=== PATIENT | female | born 1995 | race Caucasian/White ===

== ENCOUNTER 2017-10-13 14:24 | Inpatient (IN) ==
[2017-10-13] MEDS ORDERED: Naloxone 0.4 MG/ML INJ IVP PRN (15:04)
[2017-10-13] MEDS ORDERED: Ondansetron 4 MG/2 ML VIAL IVP PRN (15:04)
[2017-10-13] MEDS ORDERED: Metoclopramide 10 MG/2 ML VIAL IVP PRN (15:04)
[2017-10-13] MEDS ORDERED: *HR* Nalbuphine 20 MG/ML AMPUL IVP PRN (15:04)
[2017-10-13] MEDS ORDERED: Famotidine 20 MG/2 ML VIAL IVP PRN (15:04)
[2017-10-13] MEDS ORDERED: Ringers Solution, Lactated 1,000 ML IVC SCH (15:15)
[2017-10-13 15:38] LABS: Basophils % 0.1 %; Eosinophils % 0.3 %; Hematocrit 39.8 % (35.3-44.9); Hemoglobin 13.4 g/dL (11.5-15.4); Immature Granulocytes % 0.2 % (0-4); Lymphocytes # 1.7 K/mcL (0.6-4.6); Lymphocytes % 16.9 %; Mean Corpuscular HGB Conc 33.7 g/dL (31.6-35.5); Mean Corpuscular Volume 83.1 fL (83.0-100.0); Mean Platelet Volume 10.5 fL (9.4-12.4); Monocytes # 0.6 K/mcL (0.0-1.3); Monocytes % 5.9 %; Neutrophils # 7.5 K/mcL (1.6-8.9); Platelet Count 212 K/mcL (140-400); Red Blood Count 4.79 M/mcL (3.82-4.97); Red Cell Distribution Width 12.6 % (11.5-14.5); Segmented Neutrophils % 76.6 %
--- NOTE | 2017-10-13 15:53 | Anesthesia Evaluation PreOp ---
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: Denies Any Significant HX Other Medical History: Other (BMI >50) Anesthesia History: No Prior Anesthetic Complications, Past Anesthesia Alcohol Use: none Drug use: none Medications and Allergies Formula Tablet 10/13/17 [History] 3 Allergy/AdvReac Type Severity Reaction Status Date / Time No Known Allergies Allergy Verified 10/13/17 15:13 Anesthesia Results - Labs 10/13/17 15:10 Anesthesia Exam - HEENT Pupil (Motor): Pupils equal Mallampati: IV (good pronath, good TMD >6 cm) Teeth: Normal Oral Opening: Greater than 3 - 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 >50 BMI) Modified Mel Scale for Level of Consciousness: Cooperative, oriented, and tranquil Anesthetic Plan: General, Regional Monitoring Plan: Standard Monitors
[2017-10-13] MEDS ORDERED: Epidural Premix (fent/bupiv) 110 ML EP ONE (16:12)
[2017-10-13 16:17] LABS: Amphetamine Screen,Urine Negative ng/mL (Cutoff=1000); Barbiturate Screen,Urine Negative ng/mL (Cutoff=200); Benzodiazepines Screen,Urine Negative ng/mL (Cutoff=200); Cannabinoid Screen,Urine Negative ng/mL (Cutoff = 50); Cocaine Screen,Urine Negative ng/mL (Cutoff= 300); Opiate Screen,Urine Negative ng/mL (Cutoff=300); Phencyclidine Screen,Urine Negative ng/mL (Cutoff=25)
[2017-10-13] MEDS ORDERED: miSOPROStol 25 MCG TABLET PO PRN (16:43)
--- NOTE | 2017-10-13 17:35 | OB/GYN History & Physical ---
Date of Encounter: 10/13/17 Time of Encounter: 17:31 Assessment and Plan (1) 40 weeks gestation of Current visit: Yes Status: Acute (2) SAHIL (amniotic fluid index) borderline low Current visit: Yes Status: Acute Admit to labor and delivery for induction of labor Induction of labor with Cytotec Nubain/epidural as desired Continuous monitoring GBS Negative Anticipate (3) Morbid obesity with BMI of 45.0-49.9, adult Current visit: Yes Status: Acute (4) Decreased movement Current visit: Yes Status: Acute Qualifiers: Fetus number: single or unspecified fetus Trimester: third trimester Qualified Code(s): O36.8130 - Decreased movements, third trimester, not applicable or unspecified History of Present Illness HPI: Ms. Cho is a 21 year old female 40+ weeks gestation presenting from office for induction of labor due to post-EDC, decreased SAHIL of 5.4, and fetus measuring 36 weeks per ultrasound, however ultrasound determination is very limited by maternal habitus. She reports decreased movement over the last couple days. Rare contraction, denies vaginal bleeding or leaking of fluid. course complicated by maternal obesity, paternal history of cardiac defects, echo shows normal anatomy. Labs: A+, rubella nonimmune, varicella immune, GBS negative, although serologies negative Past Med Surg Social Fam HX - Past Medical History Medical history: hypertension (pt states has not taken medication in a long time ) Psychiatric history: no psych history - Past Surgical History Surgical History: no surgical history - Social History Smoking Status: Never smoker Smokeless Tobacco Status: No Alcohol use: none Drug use: none - Family History Mother History Unknown: Yes Obstetrical History - Pregnancies : 1 Para: 0 Term: 0 : 0 Ab's: 0 Livin Medications and Allergies Formula Tablet 10/13/17 [History] 3 Allergy/AdvReac Type Severity Reaction Status Date / Time No Known Allergies Allergy Verified 10/13/17 15:13 Exam - Constitutional Constitutional: well developed, well nourished, no acute distress, morbidly obese - Neck Neck exam: full ROM - Lungs Respiratory exam: CTAB - Cardiovascular Cardiovascular exam: RRR - Abdomen Abdomen: Present: bowel sounds normal, gravid, non tender - Extremities Extremities exam: normal capillary refill, normal inspection Deep Tendon Reflex Grade: 2+ Normal - Cervix Dilation: 1 Station: -2 - Uterus Uterus exam: Present: normal size, normal contour Results Result Diagrams: 10/13/17 15:10 All other labs normal. - VTE Reasons for not Prescribing Prophylaxis: Treatment not Indicated - Low risk for VTE
--- NOTE | 2017-10-13 22:25 | OB Labor Progress Note ---
Date of Encounter: 10/13/17 Time of Encounter: 21:30 Labor Progress Note - Subjective Subjective: Pt states she is feeling stronger contractions - Cervix Cervix: 1/50/-3 - Heart Tones Heart Tones: 135/moderate/+accels/-decels - Shubert Shubert: adjusted - Interventions Interventions: Cervical foote placed without incident - Plan Plan: If contractions decrease second dose of cytotec Otherwise when foote out will AROM and start pitocin Anticipate
--- NOTE | 2017-10-14 03:18 | Anesthesia Procedures ---
Date of Encounter: 10/14/17 Time of Encounter: 02:58 Procedures: Anesthesia - Epidural/Spinal Patient ID/Chart reviewed: Yes Patient examined: Yes OB Eval: Gestational age: term OB Eval: : 1 OB Eval: Contractions: Non-stressed pattern Supplemental Oxygen: None/Room Air Site Prep: Aseptic Technique, Sterile prep and drape, 0.5% Chlorhexidine/Alcohol Patient position: upright Local Anesthetic: Lidocaine 1% Amount of Local Anesthetic used: 3 Touhy Needle Gauge: 18 Touhy Needle Depth (cm): 8 Catheter Depth at Skin (cm): 12 Test Dose (1.5% Lido + Epi): Volume given (mls): 3 Test Dose Result: Negative Loading Dose: Other: 12ml from solution Loading Dose Administered: Thru Catheter Infusion Med: 0.125% Bupivacaine w/ 2 mcg/ml Fentanyl Infusion Rate (mls/hr): [address]: Tegaderm, Tape Interspace Used: L3-L4 Loss of Resistance (URSZULA): Yes (saline) Blood: No CSF: No Paresthesia: No Procedure: vss though out procedure, FHR stable per RN's
--- NOTE | 2017-10-14 03:57 | OB Labor Progress Note ---
Date of Encounter: 10/14/17 Time of Encounter: 04:14 Labor Progress Note - Subjective Subjective: Pt coping well with contractions - Vital Signs Vital Signs: VSS - Cervix Cervix: 4/60/-3 - Heart Tones Heart Tones: 140/moderate/+ accels/ variables and lates. Pt repositioned, fluid bolus, and amnioinfusion ordered. Pitocin remains off at this time. - [place]: IUPC q 3 - Interventions Interventions: AROM for clear fluid. FSE and IUPC placed at 0200 - Plan Plan: Start amnioinfusion if variables continue Reposition as tracing allows GBS negative.
[2017-10-14] MEDS ORDERED: 0.9 % Sodium Chloride 1,000 ML ONE (03:59)
[2017-10-14] MEDS ORDERED: Lidocaine/EPI 1:200k 2% PF 20 ML VIAL ONE (05:09)
[2017-10-14] MEDS ORDERED: Ringers Solution, Lactated 1,000 ML ONE ×2 (05:17→05:55)
[2017-10-14] MEDS ORDERED: *HR* Oxytocin 10 UNIT/ML VIAL IM ONE ×2 (05:20→05:54)
[2017-10-14] MEDS ORDERED: *HR* Morphine Sulfate/PF 5 MG/10 ML AMPUL ONE (05:47)
[2017-10-14] MEDS ORDERED: Naloxone 0.4 MG/ML INJ IVP PRN (06:08)
[2017-10-14] MEDS ORDERED: *HR* HYDROmorphone (PF) 1 MG/ML SYRINGE IVP PRN (06:08)
[2017-10-14] MEDS ORDERED: *HR* OxyCODONE/APAP 5/325 TABLET PO PRN ×2 (06:08→07:22)
[2017-10-14] MEDS ORDERED: *HR* Morphine 2 MG/ML SYRINGE IVP PRN (06:08)
[2017-10-14] MEDS ORDERED: Ibuprofen 400 MG TABLET PO PRN (06:08)
[2017-10-14] MEDS ORDERED: Ondansetron 4 MG/2 ML VIAL IVP PRN ×2 (06:08→07:22)
[2017-10-14] MEDS ORDERED: Acetaminophen IV 1,000 MG/100 ML INFUS..BTL IVPB STA (06:13)
[2017-10-14] MEDS ORDERED: Ondansetron 4 MG/2 ML VIAL ONE (06:27)
--- NOTE | 2017-10-14 06:54 | OB/GYN Procedure Note ---
Section - Date of procedure: 10/14/17 Preop diagnosis: category 2 FHT tracing Post-op diagnosis: same Procedure: primary low transverse Surgeon: Koko Marquez Estimated blood loss (cc): 400 Anesthesiologist: Roseline Galvez Rocket Scientist: Roseline Galvez Anesthesia Type: Epidural section complications: none Disposition: L&D Recovery Room - (s) Infant A Infant Delivery Date: 10/14/17 Delivery Time: 06:09 Presentation: vertex Gender: Female Gram Weight: 2.755 kg at 1 minute: 7 at 5 minutes: 9 Shoulder Dystocia: not encountered Cord: nuchal cord - Narrative Narrative: The patient was brought to the operating suite in stable condition with epidural anesthesia on board and an indwelling catheter in place in the bladder. The patient was placed supine on the operating room table and rolled to her left side. The abdomen was prepped and draped in standard fashion for section. After testing with forceps to assure an adequate anesthetic level, the surgery was commenced. With the scalpel, a Pfannenstiel skin incision was made. Dissection was carried down sharply through the subcutaneous tissues and fascia in a transverse plane with the scalpel, electrocautery and curved [place] scissors. The fascia was sharply freed up superiorly and inferiorly from the underlying rectus muscles, which were bluntly and sharply divided. The peritoneum was entered bluntly. The peritoneal incision was then extended vertically. A retractor and bladder blade were placed. A bladder flap was created by incising transversely through the peritoneum and vesicouterine fold and then bluntly dissecting the bladder distally. With the scalpel, a low transverse hysterotomy was commenced. The serosa and myometrium were scored with the scalpel. The uterine cavity was actually entered bluntly. The uterine incision was then extended laterally with the bandmill operator's fingers. An intrauterine hand was placed and the head of the was brought up out of the pelvis into the uterine incision. With fundal pressure, he was delivered without difficulty. The nasopharynx and oropharynx were suctioned. The cord was doubly clamped and transected. The was then handed off to the nursery personnel. Intravenous Pitocin was administered. The placenta was manually removed. The uterine cavity was then curetted with a dry sponge and freed of the remaining membranes. With the massage and the Pitocin, the uterus began to firm up normally. The uterine incision was then closed in 2 layers of 0 Vicryl sutures. The pelvis and gutters were suctioned and cleared of all blood and clots and amniotic fluid. The uterine incision was reinspected to assure hemostasis. The uterus, tubes and ovaries were inspected and were normal. The fascia was closed with 0-vicryl, the sub cutaneous tissue was closed with 3-0 vicryl, the skin was closed with 4-0 vicryl. Patient was sent to the recovery in stable condition.
[2017-10-14] MEDS ORDERED: Metoclopramide 10 MG/2 ML VIAL IVP PRN (07:22)
[2017-10-14] MEDS ORDERED: Sennosides 8.6 MG TABLET PO PRN (07:22)
[2017-10-14] MEDS ORDERED: Simethicone 80 MG TAB.CHEW PO PRN (07:22)
[2017-10-14] MEDS ORDERED: Ringers Solution, Lactated 1,000 ML IVC SCH (07:30)
[2017-10-14] MEDS ORDERED: Oxytocin 20 units/ LR 1000 mL 20 UNIT/1,000 ML BAG IVC SCH (07:30)
--- NOTE | 2017-10-14 07:37 | Anesthesia Evaluation Post Op ---
Date of Encounter: 10/14/17 Time of Encounter: 07:24 - Vital Signs Vital Signs: vss - Lungs Lungs: Clear Ascult./Percussion - Airway Airway: Non-obstructed - Mental Status Mental Status: Alert & Oriented, Answers Appropriately - Pain Pain Scale used: Vinicius (Faces) - Nausea Vomiting Nausea Vomiting: Not Present - Hydration Hydration: Alarcon catheter - Discharge PostOp Status: Transfer Patient to floor
--- NOTE | 2017-10-15 06:47 | OB/GYN Progress Note ---
Date of Encounter: 10/15/17 Time of Encounter: 06:30 - Assessment and Plan (1) Status post delivery Current Visit: Yes Status: Acute Pain is well controlled. Patient is meeting milestones. - Continue current pain meds. - Continue iron supplement. - Continue colace. (2) 40 weeks gestation of Current Visit: Yes Status: Acute (3) Morbid obesity with BMI of 45.0-49.9, adult Current Visit: Yes Status: Acute Subjective - Subjective Principal diagnosis: S/P Interval history: Patient says that she is doing well and is in good mood. Baby is doing well and she is currently bottle-feeding her. She has not had a bowel movement yet but has passed gas and has been able to void. Her vaginal bleeding has been light and improving. She only has minor abdominal cramping and her pain is well controlled. She denies any RODRIGUEZ, dizziness, light-headedness, nausea, vomiting, chest pain, SOB, fever, or chills. Patient seen and assessed by MIGUEL A Bennett. Agree with assessment and plan from above. Patient tolerating regular diet. Patient reports: appetite normal, voiding normally, pain well controlled, ambulating normally [place]: doing well, bottle feeding Objective - Vital Signs Latest vital signs: Vital Signs Temp Pulse Pulse Resp BP Pulse Ox 10/15/17 04:00 99 18 10/15/17 00:00 98.1 F 100 24 114/75 96 10/14/17 23:45 100 24 10/14/17 20:40 100 20 10/14/17 20:13 98.1 F 111 18 128/81 96 10/14/17 15:36 98.1 F 102 16 120/77 96 10/14/17 12:15 98.1 F 83 16 115/74 96 10/14/17 11:15 98.2 F 85 85 16 116/76 96 10/14/17 10:15 98.0 F 83 83 16 112/72 96 10/14/17 09:45 97.8 F 84 84 16 115/71 94 10/14/17 09:15 98.1 F 88 16 108/70 Intake and Output 10/14/17 10/14/17 10/15/17 15:59 23:59 07:59 Intake Total 400 / 400 Output Total 625 / 625 525 / 525 400 / 400 Balance -625 / -625 -525 / -525 0 / 0 Intake: Oral 400 / 400 Output: Urine 400 / 400 400 / 400 Emesis 100 / 100 Catheter 525 / 525 125 / 125 Other: Stool Characteristics Normal for Patient Weight 148 kg - Exam Lungs: bilateral: normal Chest: Normal S1, Normal S2 Extremities: Present: normal. Absent: tenderness, edema Abdomen: Present: normal appearance, soft, tenderness Incision: Present: dry, dressed Uterus: Present: firm
[2017-10-15 07:01] LABS: Basophils % 0.2 %; Eosinophils % 0.5 %; Hematocrit 30.9 % (35.3-44.9); Hemoglobin 10.1 g/dL (11.5-15.4); Immature Granulocytes % 0.5 % (0-4); Lymphocytes # 1.9 K/mcL (0.6-4.6); Lymphocytes % 21.9 %; Mean Corpuscular HGB Conc 32.7 g/dL (31.6-35.5); Mean Corpuscular Hemoglobin 28.2 pg (28.0-33.3); Mean Corpuscular Volume 86.3 fL (83.0-100.0); Mean Platelet Volume 10.2 fL (9.4-12.4); Monocytes # 0.7 K/mcL (0.0-1.3); Monocytes % 7.8 %; Neutrophils # 5.9 K/mcL (1.6-8.9); Platelet Count 147 K/mcL (140-400); Red Blood Count 3.58 M/mcL (3.82-4.97); Red Cell Distribution Width 12.8 % (11.5-14.5); Segmented Neutrophils % 69.1 %
[2017-10-15] MEDS: Prenatal Vit/FA 1 EACH TABLET PO SCH (09:35)
[2017-10-15] MEDS: Ibuprofen 600 MG TABLET PO PRN ×2 (09:35→21:31)
[2017-10-16 08:48] VITALS: BP 133/85
--- NOTE | 2017-10-16 09:24 | Discharge Summary ---
Date of Encounter: 10/16/17 Time of Encounter: 09:23 - Discharge Diagnosis (1) Status post delivery Priority: Primary Status: Acute Comments: 21-year-old female 40 weeks gestation status post delivery secondary to failed progression of labor POD# 2. -Patient ambulating, urinating, and defecating appropriately. Patient reports bowel movement today. Patient reports minimal pain. She does not wish to be sent home with narcotic medication. -Minimal lochia. -Baby bottlefeeding. -Meeting all milestones. -Patient stable for discharge today. (2) 40 weeks gestation of Priority: Secondary Status: Acute (3) Morbid obesity with BMI of 45.0-49.9, adult Priority: Secondary Status: Acute - Discharge Medications Prescriptions: Ibuprofen [Motrin] 600 mg PO Q6HR PRN #60 tablet PRN Reason: Cramping Home Medications: Formula Tablet 10/13/17 [History] Ibuprofen [Motrin] 600 mg PO Q6HR PRN #60 tablet 10/16/17 [Rx] Allergies/Adverse Reactions: 3 Allergy/AdvReac Type Severity Reaction Status Date / Time No Known Allergies Allergy Verified 10/13/17 15:13 Data Procedures and tests throughout hospitalization: Laboratory Tests 10/13/17 10/13/17 10/15/17 15:10 15:10 06:12 WBC 9.8 8.5 RBC 4.79 3.58 L Hgb 13.4 10.1 L D Hct 39.8 30.9 L MCV 83.1 86.3 MCH 28.0 28.2 MCHC 33.7 32.7 RDW 12.6 12.8 Plt Count 212 147 MPV 10.5 10.2 Immature Gran % 0.2 0.5 Seg Neutrophils % 76.6 69.1 Lymphocytes % 16.9 21.9 Monocytes % 5.9 7.8 Eosinophils % 0.3 0.5 Basophils % 0.1 0.2 Neutrophils # 7.5 5.9 Lymphocytes # 1.7 1.9 Monocytes # 0.6 0.7 Eosinophils # 0.0 0.0 Basophils # 0.0 0.0 Urine Opiates Screen Negative Ur Barbiturates Screen Negative Ur Phencyclidine Scrn Negative Ur Amphetamines Screen Negative U Benzodiazepines Scrn Negative Urine Cocaine Screen Negative U Marijuana (THC) Screen Negative Date of admission: 10/13/17 14:24 Primary care physician: PCP NONE Discharging clinician: Ariel Lopez Anticipated date of discharge: 10/16/17 - Patient Status Disposition: Home, Self-Care Condition: Good Functional capacity at discharge: independent ambulation Overall status at discharge: patient is progressing back to baseline - Discharge Instructions Follow Up With: NONE,PCP [Primary Care Provider] - Koko Marquez MD [Partnered Physician] - - Diet and Activity Activity: increase activity as tolerated Diet: advance to your usual diet Hospital Course Reason for admission: induction of labor Delivery: section Episiotomy: none Laceration: none Other procedures: none complications: none Discharge diagnosis: IUP at term delivered baby: female Hospital course: Mrs. Cho is a 21-year-old female status post section postoperative day 2. Patient has no complaints this morning. She is ambulating , urinating, defecating appropriately. She states her pain is minimal, stating she does not wish to be sent home with any advanced pain medications. She states her pain is well controlled on ibuprofen. Patient reports minimal lochia , clots, and postoperative pain. She denies any chest pain, shortness of breath , dizziness, or lightheadedness. She denies any headaches, visual disturbances , or epigastric pain. Patient states she is ready for discharge. All questions were answered. Time Attestation: Total time spent providing and/or coordinating discharge services: Time Spent: Less than 30 minutes - VTE Reasons for not Prescribing Prophylaxis: Treatment not Indicated - Low risk for VTE Documentation of Mechanical Device: Intermittent pneumatic compression device Exam - Constitutional Vitals: Temp Pulse Resp BP Pulse Ox 97.2 F L 92 20 133/85 97 10/16/17 08:47 10/16/17 08:47 10/16/17 08:47 10/16/17 08:47 10/16/17 08:47 General appearance IM: A&O X 3 - Respiratory Respiratory exam: Present: CTAB - Cardiovascular Cardiovascular exam IM: Present: RRR, +S1, +S2 - GI/Abdominal GI/Abdominal exam IM: tenderness (Mild tenderness surrounding lower abdominal incision.), no peritoneal signs Incision: dry, intact (Dressing has been removed, and Steri-Strips are in place. ) - Uterus Position: At Umbilicus, Midline - Extremities Exam Extremities exam IM: Present: pedal edema (Mild 1+ bilateral pedal edema.), radial pulses palpable and symmetrical. Absent: calf tenderness - Neurological Exam Neurological exam: alert, normal gait
[2017-10-16] MEDS: Prenatal Vit/FA 1 EACH TABLET PO SCH (09:43)
[2017-10-16] MEDS: Ibuprofen 600 MG TABLET PO PRN (09:43)
== END 2017-10-16 13:30 | disposition home or self-care (01) | DRG 765 ==
LOC: 1NENULAB → OBSVTOIN 14:24
PROVIDERS: ADMIT Student in an Organized Health Care Education/Training Program; ATTEND Student in an Organized Health Care Education/Training Program